=== PATIENT | male | born 1960 | race Two or more races ===

== ENCOUNTER → 2025-04-23 | Outpatient (CLI) | payer MEDICARE, SELFPAY | END | disposition home or self-care (01) | PROVIDERS: PCP Internal Medicine; Referring Provider Internal Medicine; Visit Provider Student in an Organized Health Care Education/Training Program | DX: E11.621 Type 2 diabetes mellitus with foot ulcer (principal); L97.525 Non-pressure chronic ulcer of other part of left foot with muscle involvement without evidence of necrosis; D64.9 Anemia, unspecified; E11.40 Type 2 diabetes mellitus with diabetic neuropathy, unspecified; I50.9 Heart failure, unspecified; M86.9 Osteomyelitis, unspecified; N18.6 End stage renal disease; E78.5 Hyperlipidemia, unspecified; E66.09 Other obesity due to excess calories; Z79.85 Long-term (current) use of injectable non-insulin antidiabetic drugs | CPT/HCPCS: 99214; A9270; G0463 ==

== ENCOUNTER → 2025-04-30 | Outpatient (CLI) | payer MEDICARE, SELFPAY | END | disposition home or self-care (01) | LOC: SWHD 10:13 | PROVIDERS: PCP Family Medicine; Referring Provider Family Medicine; Visit Provider Student in an Organized Health Care Education/Training Program | DX: E11.621 Type 2 diabetes mellitus with foot ulcer (principal); L97.522 Non-pressure chronic ulcer of other part of left foot with fat layer exposed; D64.9 Anemia, unspecified; E11.40 Type 2 diabetes mellitus with diabetic neuropathy, unspecified; M86.9 Osteomyelitis, unspecified; N18.6 End stage renal disease; E78.5 Hyperlipidemia, unspecified; E66.09 Other obesity due to excess calories; Z79.85 Long-term (current) use of injectable non-insulin antidiabetic drugs | CPT/HCPCS: 11042; A9270 ==

== ENCOUNTER → 2025-05-07 | Outpatient (CLI) | payer MEDICARE, SELFPAY | END | disposition home or self-care (01) | LOC: SWHD 10:21 | PROVIDERS: PCP Family Medicine; Referring Provider Family Medicine; Visit Provider Student in an Organized Health Care Education/Training Program | DX: E11.621 Type 2 diabetes mellitus with foot ulcer (principal); L97.525 Non-pressure chronic ulcer of other part of left foot with muscle involvement without evidence of necrosis; D64.9 Anemia, unspecified; E11.40 Type 2 diabetes mellitus with diabetic neuropathy, unspecified; M86.9 Osteomyelitis, unspecified; N18.6 End stage renal disease; E78.5 Hyperlipidemia, unspecified; E66.09 Other obesity due to excess calories; Z79.85 Long-term (current) use of injectable non-insulin antidiabetic drugs | CPT/HCPCS: 11043; A9270 ==

== ENCOUNTER → 2025-05-14 | Outpatient (CLI) | payer MEDICARE, SELFPAY | END | disposition home or self-care (01) | LOC: SWHD 10:09 | PROVIDERS: PCP Family Medicine; Referring Provider Family Medicine; Visit Provider Student in an Organized Health Care Education/Training Program | DX: E11.621 Type 2 diabetes mellitus with foot ulcer (principal); L97.526 Non-pressure chronic ulcer of other part of left foot with bone involvement without evidence of necrosis; D64.9 Anemia, unspecified; E11.40 Type 2 diabetes mellitus with diabetic neuropathy, unspecified; M86.9 Osteomyelitis, unspecified; N18.6 End stage renal disease; E78.5 Hyperlipidemia, unspecified; E66.09 Other obesity due to excess calories; Z79.85 Long-term (current) use of injectable non-insulin antidiabetic drugs | CPT/HCPCS: 11044; A9270 ==

== ENCOUNTER → 2025-05-14 | Outpatient (CLI) | payer MEDICARE, SELFPAY ==
--- NOTE | 2025-05-14 12:33 | XR_ITS ---
Examination: Toes, left foot 3 views Technique: Toes AP oblique lateral 3 views left foot 3 views Date and time of exam: May 14, 2025 1338 hours INDICATIONS: Nonhealing wounds involving the toes, this month FINDINGS: Severe osteopenia Periosteal new bone involving the proximal phalanx second digit with associated soft tissue swelling Soft tissue vascular calcification IMPRESSION: Osteomyelitis proximal phalanx second digit, consider repeat MRI foot without contrast follow-up
== END | disposition home or self-care (01) ==
LOC: CDIM 12:25
PROVIDERS: PCP Family Medicine; Referring Provider Student in an Organized Health Care Education/Training Program; Visit Provider Student in an Organized Health Care Education/Training Program
DX: M86.8X8 Other osteomyelitis, other site (principal)
CPT/HCPCS: 73660

== ENCOUNTER → 2025-05-21 | Outpatient (CLI) | payer MEDICARE, SELFPAY | END | disposition home or self-care (01) | PROVIDERS: PCP Family Medicine; Referring Provider Family Medicine; Visit Provider Student in an Organized Health Care Education/Training Program | DX: E11.621 Type 2 diabetes mellitus with foot ulcer (principal); L97.524 Non-pressure chronic ulcer of other part of left foot with necrosis of bone; D64.9 Anemia, unspecified; E11.40 Type 2 diabetes mellitus with diabetic neuropathy, unspecified; M86.9 Osteomyelitis, unspecified; N18.6 End stage renal disease; E78.5 Hyperlipidemia, unspecified; E66.09 Other obesity due to excess calories; Z79.85 Long-term (current) use of injectable non-insulin antidiabetic drugs | CPT/HCPCS: 11042; A9270 ==

== ENCOUNTER → 2025-05-28 | Outpatient (CLI) | payer MEDICARE, SELFPAY | END | disposition home or self-care (01) | LOC: SWHD 08:19 | PROVIDERS: PCP Family Medicine; Referring Provider Family Medicine; Visit Provider Student in an Organized Health Care Education/Training Program | DX: E11.621 Type 2 diabetes mellitus with foot ulcer (principal); L97.522 Non-pressure chronic ulcer of other part of left foot with fat layer exposed; D64.9 Anemia, unspecified; E11.40 Type 2 diabetes mellitus with diabetic neuropathy, unspecified; M86.9 Osteomyelitis, unspecified; N18.6 End stage renal disease; E78.5 Hyperlipidemia, unspecified; E66.09 Other obesity due to excess calories; Z79.85 Long-term (current) use of injectable non-insulin antidiabetic drugs | CPT/HCPCS: 97597; A9270 ==

== ENCOUNTER → 2025-06-04 | Outpatient (CLI) | payer MEDICARE, SELFPAY | END | disposition home or self-care (01) | LOC: SWHD 08:39 | PROVIDERS: PCP Family Medicine; Referring Provider Family Medicine; Visit Provider Student in an Organized Health Care Education/Training Program | DX: E11.621 Type 2 diabetes mellitus with foot ulcer (principal); L97.522 Non-pressure chronic ulcer of other part of left foot with fat layer exposed; D64.9 Anemia, unspecified; E11.40 Type 2 diabetes mellitus with diabetic neuropathy, unspecified; M86.9 Osteomyelitis, unspecified; N18.6 End stage renal disease; E78.5 Hyperlipidemia, unspecified; E66.09 Other obesity due to excess calories; Z79.85 Long-term (current) use of injectable non-insulin antidiabetic drugs | CPT/HCPCS: 97597; A9270 ==

== ENCOUNTER → 2025-06-11 | Outpatient (CLI) | payer MEDICARE, SELFPAY | END | disposition home or self-care (01) | LOC: SWHD 09:28 | PROVIDERS: PCP Family Medicine; Referring Provider Family Medicine; Visit Provider Student in an Organized Health Care Education/Training Program | DX: E11.621 Type 2 diabetes mellitus with foot ulcer (principal); L97.522 Non-pressure chronic ulcer of other part of left foot with fat layer exposed; D64.9 Anemia, unspecified; E11.40 Type 2 diabetes mellitus with diabetic neuropathy, unspecified; M86.9 Osteomyelitis, unspecified; N18.6 End stage renal disease; E78.5 Hyperlipidemia, unspecified; E66.09 Other obesity due to excess calories; Z79.85 Long-term (current) use of injectable non-insulin antidiabetic drugs | CPT/HCPCS: 97597; A9270 ==

== ENCOUNTER 2025-06-17 13:51 | Outpatient (AMB) | payer MEDICARE, SELFPAY ==
[2025-06-17 14:03] VITALS: BP 118/76; PULSE 114; RESP 18; TEMP 36.2; O2SAT 95; BMI 35.9
--- NOTE | 2025-06-17 14:03 | PD.ORTHCLVIS ---
Vital signs 06/17/25 14:03 Height 1.8 m Height Method Measured Weight 116.658 kg Weight Measurement Method Standing Scale BMI 35.9 BP 118/76 Blood Pressure Source Automatic Cuff Blood Pressure Location Right Upper Arm Position Sitting Respiration 18 Pulse 114 H Pulse Source Monitor Temp 97.1 F Temp Source Temporal Artery Scan Pulse Oximetry (%) 95 Oxygen Delivery Method Room Air Med/Allergies Allergies & Medications Allergies No Known Allergies Allergy (Verified 06/17/25 14:04) Medication Reconciliation gabapentin 300 mg capsule 300 mg PO TID #0 caps 07/21/17 [History Confirmed 06/17/25] labetalol 100 mg tablet 100 mg PO BID #0 tabs 07/25/17 [History Confirmed 06/17/25] pravastatin 40 mg tablet 40 mg PO QDAY 11/06/19 [History Confirmed 06/17/25] clopidogrel 75 mg tablet 75 mg PO QDAY 12/30/20 [History Confirmed 06/17/25] calcium acetate 667 mg tablet 667 mg PO TID 02/22/22 [History Confirmed 06/17/25] omega 0-bmz-nfe-fish oil 1,000 mg (120 mg-180 mg) capsule (Fish Oil) 1 cap PO QDAY 02/22/22 [History Confirmed 06/17/25] acetaminophen 500 mg tablet 500 mg PO Q6H PRN PAIN 04/13/22 [History Confirmed 06/17/25] insulin glargine 100 unit/mL (3 mL) subcutaneous pen 10 unit (0.1 mL) subcut QPM 30 days #3 mL 07/03/23 [Rx Confirmed 06/17/25] Exam Exam Patient is in no acute distress and is cooperative with the examination today. Breathing is nonlabored. Patient has a normal mood and affect. Bilateral extremities were evaluated and demonstrates sensation intact to light touch. Palpable pedal pulses are present. No significant edema is present. Bilateral hips were examined. The patient has no pain with log roll of the hips. Internal rotation to 30 degrees and external rotation to 30 degrees is painless. Negative FADIR. Right knee was examined today. The right knee is in reasonable alignment. Range of motion from 0-120 degrees. Knee is stable to varus and valgus as well as AP translation with <5mm. Patient has a negative McMurrays. There is no pain with patellofemoral compression and no crepitus noted. The knee is nontender to palpation. Left knee was examined today. The left knee is in varus alignment. Range of motion from 0-115 degrees. Knee is stable to varus and valgus as well as AP translation with <5mm. Patient has a negative McMurrays. There is no pain with patellofemoral compression and no crepitus noted. The knee is tender to palpation medially. Assessment and Plan Problem List (1) Arthritis of left knee: Status: Acute Plan: Patient is a pleasant 65-year-old male with left knee pain and left knee arthritis. We discussed different treatment options. We would like to get weightbearing x-rays as well as authorization for injections. We will see him back after his left knee x-rays are done. Office Procedures GNS Level of Care Nursing/Assessment Patient Status: Initial/New Patient Nursing Assessment/Reassesment: Medication Reconciliation, Orthostatic Vitals, Update PMH in EMR and Vital Signs Coordination of Care: Complex Care and Chronic Disease 1-5, Education Complex Pt/Fam, Consent,records obtained, informed consent, Lab and Imaging orders, Results/Orders obtained and Staff clarify orders New Patient Charge New Patient Point Assignment: 1119 New Patient Point Charge: BATHROOM TILING PROFESSIONAL Level 4 (7460-2093) MA Intake Visit Data Collection New Patient or Established: New Patient (never been to [facility]) Reason for Visit:: LEFT KNEE OSTEOARTHRITIS Seen by Clinical Staff ONLY (RN/MA): No Artificial Flowers Dyer Required: No PCP or OBGYN visit in last 3 months: Yes Hx Now: No Do You Feel Safe at Home: Yes Authorities Contacted: N/A Questionairres Past Medical History Past Medical History Have you ever been diagnosed with any of the following: Neurological Problems Cerebrovascular Accident (CVA): No Transient Ischemic Attacks (TIA): No Dementia: No Alzheimer's Disease: No Parkinson's Disease: No Brain Tumor: No Meningitis: No Seizures: No Epilepsy: No Multiple Sclerosis: No Cerebral Palsy: No Amyotrophic Lateral Sclerosis (ALS/Lizzette Gehrig's): No Guillain-[place] Syndrome: No Spina Bifida: No Paralysis: No Peripheral Neuropathy: No Ashraf's Palsy: No Subdural Hematoma: No Migraine: No Head Trauma: No Spinal Cord Injury: No Traumatic Brain Injury: No Cardiology Problems Myocardial Infarction: Yes (MILD [address] BRIGGS AND WAS RELEASED PER PT) Hypercholesterolemia: Yes Congestive Heart Failure: No Edema: No Cellulitis: No Hypertension: Yes (TAKES MED) Varicose Veins: No Respiratory Problems Chronic Obstructive Pulmonary Disease (COPD): No Asthma: No Bronchitis: No Emphysema: No Pneumonia: No Pulmonary Fibrosis: No Tuberculosis: No Pulmonary Embolism: No Pulmonary Edema: No Sleep Apnea: No Stomache/Intestinal Problems Hepatitis: No Cirrhosis: No Pancreatitis: No Celiac Disease: No Gall Bladder Disease: No Gastrointestinal Bleed: No Esophageal Varices: No Polk's Esophagus: No Colitis: No Ulcerative Colitis: No Diverticulitis: No Diverticulosis: No Ulcer: No Colorectal Cancer: No Irritable Bowel: No Crohn's Disease: No Obstructive Bowel: No Hiatal Hernia: No Hemorrhoids: No Gastroesophageal Reflux Disease: No Obesity: No Genital/Urinary Problems Renal Disease: Yes (ESRD DIALYSIS CATH RIGHT CHEST) Dialysis: Yes (TUES,TH,SAT) Prostate Cancer: No Reproductive Problems Breast Cancer: No Fibroids: No Genital Herpes: No Gonorrhea: No Syphilis: No Testicular Cancer: No Musculoskeletal Problems Muscular Dystrophy: No Myasthenia Gravis: No Marfan's Syndrome: No Bone Cancer: No Arthritis: Yes Rheumatoid Arthritis: No Osteoporosis: No Degenerative Disk Disease: No Gout: No Scoliosis: No Carpal Tunnel Syndrome: No Fibromyalgia: No Fractures: No Degenerative Joint Disease: No Osteomyelitis: No Poliovirus: No Head,Eye,Nose,Throat Problems Cataracts: No Glaucoma: No Blind: No Retinal Detachment: No Macular Degeneration: No Chronic Ear Infections: No Deafness: No Eye Prosthesis: No Endocrine Problems Diabetes Mellitus Type 1: No Diabetes Mellitus Type 2: Yes (TAKES PRN SUBQ) Blood Problems Anemia: No (STOP MED) Leukemia: No Hemophilia: No Thalassemia: No Sickle Cell Disease: No Clotting Problems: Yes (?) Psychologic Problems Schizophrenia: No Recreational Drug Use: No Bipolar Disorder: No Depression: No Anxiety: No Behavior Problems: No Self-Mutilation: No Attention Deficit Disorder: No Attention Deficit Hyperactivity Disorder: No Depression: No Post Traumatic Stress Disorder: No Eating Disorder: No Other Problems Hospitalization: Yes (HOSP FOR LEFT FOOT BIG TOE [facility] 01/28 [facility]) Down Syndrome: No Autism: No Developmental Delay: No Shingles: No Falls: No Blood Transfusions: Yes Blood Transfusion Reaction: No Anesthesia Reactions: No Organ Transplant: No Chemotherapy: No Radiation Therapy: No Hyperbaric Therapy: No MRSA: No VRSA: No Vancomycin-Resistant Enterococci: No Human Immunodeficiency Virus (HIV): No Chicken Pox: Yes Measles: Yes Mumps: Yes Rubella (Macedonian Measles): No Pertussis: No Clostridium Difficile: No Cancer: No Lung Cancer: No Surgical History Carotid Endarterectomy: No Coronary Artery Bypass Graft: No Valve Replacement: No Pacemaker: No Thyroidectomy: No Subjective Visit Visit for: new patient and knee Immunization / Flu Flu Vaccine in the Last 12 Months: Yes Flu Vaccine Exclusion Criteria: Already Received History of Present Illness Chief complaint: LEFT KNEE OSTEOARTHRITIS Date of injury / onset of symptoms: 14 YEARS AGO Keny is a pleasant 65-year-old male with left knee pain and left knee arthritis. The left side is worse than the right. He reports his hemoglobin A1c is 7. He is on dialysis and he had a prior heart attack. Great candidate for total knee replacement. The knee pains been ongoing for 3 years Personal History Red flag PMH: none BMI Counceling provided: Yes Pain Pain level (0-10): 7 Pain duration: ALL DAY Pain location: inside (medial) Pain quality: sharp Associated signs & symptoms: none Ambulatory data Ambulatory device: walker Walking distance (minutes): 5 Treatments Number of previous injections: 0 Number of Physical Therapy sessions: 0 Improvement with NSAIDS: no Review of Systems Review of Systems: All systems negative unless otherwise noted in HPI.
--- NOTE | 2025-06-17 14:21 | XR_ITS ---
Examination: Bilateral knees 2 views Right lateral knee left lateral knee 2 views Bilateral axial knees single view TECHNIQUE: Bilateral AP knees standing single view, bilateral PA knees standing single view flexion Standing right lateral knee left lateral knee 2 views Bilateral axial knees single view Date and time: June 17, 2025, 1430 hours INDICATIONS: Knee pain months FINDINGS: Moderate osteopenia. Mild narrowing medial joint space right knee No fracture Advanced narrowing ixkk-bl-ydct medial joint space left knee Moderate to advanced osteoarthritis lateral and patellofemoral joints left knee. Vascular calcification. IMPRESSION: Advanced left knee tricompartment osteoarthritis including severe narrowing mntt-hx-haty medial joint space left knee.
== END 2025-06-17 14:24 | disposition home or self-care (01) ==
LOC: HODSRG 13:51
PROVIDERS: PCP Family Medicine; Referring Provider Family Medicine; Supervising Provider Orthopaedic Surgery Adult Reconstructive Orthopaedic Surgery; Visit Provider Orthopaedic Surgery Adult Reconstructive Orthopaedic Surgery
DX: M17.12 Unilateral primary osteoarthritis, left knee (principal); M25.562 Pain in left knee; E78.00 Pure hypercholesterolemia, unspecified; I25.2 Old myocardial infarction; I12.0 Hypertensive chronic kidney disease with stage 5 chronic kidney disease or end stage renal disease; E11.9 Type 2 diabetes mellitus without complications; N18.6 End stage renal disease; Z99.2 Dependence on renal dialysis
CPT/HCPCS: 73564; 99204; G0463

== ENCOUNTER → 2025-06-18 | Outpatient (CLI) | payer MEDICARE, SELFPAY | END | disposition home or self-care (01) | LOC: SWHD 08:26 | PROVIDERS: PCP Family Medicine; Referring Provider Family Medicine; Visit Provider Student in an Organized Health Care Education/Training Program | DX: E11.621 Type 2 diabetes mellitus with foot ulcer (principal); L97.522 Non-pressure chronic ulcer of other part of left foot with fat layer exposed; D64.9 Anemia, unspecified; E11.40 Type 2 diabetes mellitus with diabetic neuropathy, unspecified; M86.9 Osteomyelitis, unspecified; N18.6 End stage renal disease; E78.5 Hyperlipidemia, unspecified; E66.09 Other obesity due to excess calories; Z79.85 Long-term (current) use of injectable non-insulin antidiabetic drugs | CPT/HCPCS: 11042; A9270 ==

== ENCOUNTER → 2025-06-25 | Outpatient (CLI) | payer MEDICARE, SELFPAY | END | disposition home or self-care (01) | LOC: SWHD 08:32 | PROVIDERS: PCP Family Medicine; Referring Provider Family Medicine; Visit Provider Student in an Organized Health Care Education/Training Program | DX: E11.621 Type 2 diabetes mellitus with foot ulcer (principal); L97.522 Non-pressure chronic ulcer of other part of left foot with fat layer exposed; D64.9 Anemia, unspecified; E11.40 Type 2 diabetes mellitus with diabetic neuropathy, unspecified; M86.9 Osteomyelitis, unspecified; N18.6 End stage renal disease; E66.09 Other obesity due to excess calories; Z79.85 Long-term (current) use of injectable non-insulin antidiabetic drugs | CPT/HCPCS: 11042; A9270 ==

== ENCOUNTER 2025-07-01 13:32 | Outpatient (AMB) | payer MEDICARE, SELFPAY ==
[2025-07-01 13:48] VITALS: BP 120/75; PULSE 89; RESP 18; TEMP 36.3; O2SAT 93; BMI 35.9
--- NOTE | 2025-07-01 13:48 | ORTHONT_ITS ---
Vital signs 07/01/25 13:48 Height 1.8 m Height Method Measured Weight 116.375 kg Weight Measurement Method Standing Scale BMI 35.9 BP 120/75 Blood Pressure Source Automatic Cuff Blood Pressure Location Left Upper Arm Position Sitting Respiration 18 Pulse 89 Pulse Source Monitor Temp 97.3 F Temp Source Temporal Artery Scan Pulse Oximetry (%) 93 L Oxygen Delivery Method Room Air Med/Allergies Allergies & Medications Allergies No Known Allergies Allergy (Verified 07/01/25 13:49) Medication Reconciliation gabapentin 300 mg capsule 300 mg PO TID #0 caps 07/21/17 [History Confirmed 06/10 12/31] labetalol 100 mg tablet 100 mg PO BID #0 tabs 07/25/17 [History Confirmed 07/01/25] pravastatin 40 mg tablet 40 mg PO QDAY 11/06/19 [History Confirmed 07/01/25] clopidogrel 75 mg tablet 75 mg PO QDAY 12/30/20 [History Confirmed 07/01/25] calcium acetate 667 mg tablet 667 mg PO TID 02/22/22 [History Confirmed 07/01/25] omega 0-ndw-lrg-fish oil 1,000 mg (120 mg-180 mg) capsule (Fish Oil) 1 cap PO QDAY 02/22/22 [History Confirmed 07/01/25] acetaminophen 500 mg tablet 500 mg PO Q6H PRN PAIN 04/13/22 [History Confirmed 07/01/25] insulin glargine 100 unit/mL (3 mL) subcutaneous pen 10 unit (0.1 mL) subcut QPM 30 days #3 mL 07/03/23 [Rx Confirmed 07/01/25] Exam Exam Patient is in no acute distress and is cooperative with the examination today. Breathing is nonlabored. Patient has a normal mood and affect. Bilateral extremities were evaluated and demonstrates sensation intact to light touch. Palpable pedal pulses are present. No significant edema is present. Bilateral hips were examined. The patient has no pain with log roll of the hips. Internal rotation to 30 degrees and external rotation to 30 degrees is painless. Negative FADIR. Right knee was examined today. The right knee is in reasonable alignment. Range of motion from 0-120 degrees. Knee is stable to varus and valgus as well as AP translation with <5mm. Patient has a negative McMurrays. There is no pain with patellofemoral compression and no crepitus noted. The knee is nontender to palpation. Left knee was examined today. The left knee is in varus alignment. Range of motion from 0-115 degrees. Knee is stable to varus and valgus as well as AP translation with <5mm. Patient has a negative McMurrays. There is no pain with patellofemoral compression and no crepitus noted. The knee is tender to palpation medially. Patient has severe arthritis of his left knee with complete joint space obliteration medially Assessment and Plan Problem List (1) Arthritis of left knee: Status: Acute Plan ASSESSMENT AND PLAN 1. Severe bbea-pl-bowd arthritis, left knee: X-ray results indicate severe pkdk-bl-flei arthritis in the left knee. Given the high-risk status for surgery due to dialysis and a previous heart attack, a cortisone injection is recommended as an alternative to total knee replacement. The knee replacement would involve replacing the surface with metal and plastic, but there is a high risk of infection due to dialysis. The cortisone injection will be administered today. For pain management, Tylenol is recommended as he cannot take other medications due to kidney issues. 2. Neuropathy: He reported developing blisters on top of his toes due to neuropathy, which prevented him from feeling a paper in his new shoes. He is currently wearing a boot to manage the ulcers. The blisters are expected to heal by tomorrow. 3. Diabetes Mellitus: His hemoglobin A1c is about 7, indicating controlled blood sugar levels. Continued monitoring and management of blood sugar levels are recommended to maintain control. 4. Dialysis: He is currently on dialysis, which increases his risk for infections and complicates surgical options. Regular follow-ups with the documentation billing clerk are necessary to manage dialysis effectively. Recommend knee cortisone injection as patient would like to proceed with conservative treatment at this time. The risks and benefits of the procedure were reviewed with the patient and patient gave verbal consent to continue with the procedure. Procedure: performed by Dr. Blank Using sterile technique the left knee was thoroughly prepped with alcohol, and approximately 1 cc of Depo-Medrol 80mg/mL and 4 cc of 0.2% ropivacaine was injected without resistance into the medial tibial femoral joint space. The patient tolerated the procedure. Office Procedures GNS Level of Care Nursing/Assessment Patient Status: Established Patient Nursing Assessment/Reassesment: Medication Reconciliation, Update PMH in EMR and Vital Signs Coordination of Care: Complex Care and Chronic Disease 1-5, Education Complex Pt/Fam, Consent,records obtained, informed consent, Results/Orders obtained and Staff clarify orders Established Patient Charge Established Patient Point Assignment: 95 Established Patient Point Charge: EP Level 3 (80-115) Surgical Proc/IM SQ injection Minor Surgical Procedure: Yes (KNEE INJECTION) Medication Given Medication Given Medication Given: Yes Documented Dose Given: 1 Route: Infiitration Medication Given Medication Given Medication Given: Yes Documented Dose Given: 4 Route: Infiitration Office Meds methylprednisolone acetate 80 mg/mL suspension for injection Performing Provider: Micha Blank MD Performing Location: [facility] Administered by: Micha Blank MD on 07/01/25 14:31 Dose Route Admin Location Dispensed Lot Number Expiration Date Pack age [facility] [employer] 80 mg intra-articular KNEE 1 mL [id number] 09/07/26 [address]-8 [id number] [employer] ropivacaine (PF) 2 mg/mL (0.2 %) injection solution Performing Provider: Micha Blank MD Performing Location: [facility] Administered by: Micha Blank MD on 07/01/25 14:31 Dose Route Admin Location Dispensed Lot Number Expiration Date Pack age [facility] [employer] 20 mL Infiltration KNEE 20 mL [id number] 11/08/27 40946-439-66 [id number] [facility] Intake Visit Data Collection New Patient or Established: Established Patient (seen at [facility] within 3 years) Reason for Visit:: XRAY RESULTS/BILATERAL KNEE INJECTIONS Seen by Clinical Staff ONLY (RN/MA): No Yarn Comber Required: No PCP or OBGYN visit in last 3 months: Yes Hx Now: No Do You Feel Safe at Home: Yes Authorities Contacted: N/A Questionairres Past Medical History Past Medical History Have you ever been diagnosed with any of the following: Neurological Problems Cerebrovascular Accident (CVA): No Transient Ischemic Attacks (TIA): No Dementia: No Alzheimer's Disease: No Parkinson's Disease: No Brain Tumor: No Meningitis: No Seizures: No Epilepsy: No Multiple Sclerosis: No Cerebral Palsy: No Amyotrophic Lateral Sclerosis (ALS/Lizzette Gehrig's): No Guillain-[place] Syndrome: No Spina Bifida: No Paralysis: No Peripheral Neuropathy: No Ashraf's Palsy: No Subdural Hematoma: No Migraine: No Head Trauma: No Spinal Cord Injury: No Traumatic Brain Injury: No Cardiology Problems Myocardial Infarction: Yes ([address] BRIGGS AND WAS RELEASED PER PT) Hypercholesterolemia: Yes Congestive Heart Failure: No Edema: No Cellulitis: No Hypertension: Yes (TAKES MED) Varicose Veins: No Respiratory Problems Chronic Obstructive Pulmonary Disease (COPD): No Asthma: No Bronchitis: No Emphysema: No Pneumonia: No Pulmonary Fibrosis: No Tuberculosis: No Pulmonary Embolism: No Pulmonary Edema: No Sleep Apnea: No Stomache/Intestinal Problems Hepatitis: No Cirrhosis: No Pancreatitis: No Celiac Disease: No Gall Bladder Disease: No Gastrointestinal Bleed: No Esophageal Varices: No Polk's Esophagus: No Colitis: No Ulcerative Colitis: No Diverticulitis: No Diverticulosis: No Ulcer: No Colorectal Cancer: No Irritable Bowel: No Crohn's Disease: No Obstructive Bowel: No Hiatal Hernia: No Hemorrhoids: No Gastroesophageal Reflux Disease: No Obesity: No Genital/Urinary Problems Renal Disease: Yes (ESRD DIALYSIS CATH RIGHT CHEST) Dialysis: Yes (TUES,TH,SAT) Prostate Cancer: No Reproductive Problems Breast Cancer: No Fibroids: No Genital Herpes: No Gonorrhea: No Syphilis: No Testicular Cancer: No Musculoskeletal Problems Muscular Dystrophy: No Myasthenia Gravis: No Marfan's Syndrome: No Bone Cancer: No Arthritis: Yes Rheumatoid Arthritis: No Osteoporosis: No Degenerative Disk Disease: No Gout: No Scoliosis: No Carpal Tunnel Syndrome: No Fibromyalgia: No Fractures: No Degenerative Joint Disease: No Osteomyelitis: No Poliovirus: No Head,Eye,Nose,Throat Problems Cataracts: No Glaucoma: No Blind: No Retinal Detachment: No Macular Degeneration: No Chronic Ear Infections: No Deafness: No Eye Prosthesis: No Endocrine Problems Diabetes Mellitus Type 1: No Diabetes Mellitus Type 2: Yes (TAKES PRN SUBQ) Blood Problems Anemia: No (STOP MED) Leukemia: No Hemophilia: No Thalassemia: No Sickle Cell Disease: No Clotting Problems: Yes (?) Psychologic Problems Schizophrenia: No Recreational Drug Use: No Bipolar Disorder: No Depression: No Anxiety: No Behavior Problems: No Self-Mutilation: No Attention Deficit Disorder: No Attention Deficit Hyperactivity Disorder: No Depression: No Post Traumatic Stress Disorder: No Eating Disorder: No Other Problems Hospitalization: Yes (HOSP FOR LEFT FOOT BIG TOE [facility]GR[facility] 01/28 [facility]) Down Syndrome: No Autism: No Developmental Delay: No Shingles: No Falls: No Blood Transfusions: Yes Blood Transfusion Reaction: No Anesthesia Reactions: No Organ Transplant: No Chemotherapy: No Radiation Therapy: No Hyperbaric Therapy: No MRSA: No VRSA: No Vancomycin-Resistant Enterococci: No Human Immunodeficiency Virus (HIV): No Chicken Pox: Yes Measles: Yes Mumps: Yes Rubella (Nepali Measles): No Pertussis: No Clostridium Difficile: No Cancer: No Lung Cancer: No Surgical History Carotid Endarterectomy: No Coronary Artery Bypass Graft: No Valve Replacement: No Pacemaker: No Thyroidectomy: No Subjective Visit Visit for: follow up visit and knee Immunization / Flu Flu Vaccine in the Last 12 Months: Yes Flu Vaccine Exclusion Criteria: Already Received History of Present Illness Chief complaint: LEFT KNEE OSTEOARTHRITIS Date of injury / onset of symptoms: 14 YEARS AGO HISTORY OF PRESENT ILLNESS I, Micha Blank, have obtained verbal consent from the patient, to be recorded during this encounter which may include, but not limited to, medical history, examination, treatment plans, and relevant health information.? Patient was inf ormed that recording will be read and reviewed by myself before inclusion in the medical chart. The patient is here for an x-ray follow-up of his left knee. He reports that his right knee is in good condition. He has not received any injections in his left knee previously. He is currently on dialysis and has a history of heart attack. He has neuropathy and developed blisters on his toes after wearing new shoes 3 to 4 weeks ago. He attributes this to his neuropathy, which prevented him from feeling the paper at the tip of the shoes. He expects these blisters to heal by tomorrow and is under the care of a cake decorator. His hemoglobin A1c level is approximately 7, indicating controlled blood sugar levels. Personal History Red flag PMH: none BMI Counceling provided: Yes Pain Pain level (0-10): 7 Pain duration: ALL DAY Pain location: inside (medial) Pain quality: sharp Associated signs & symptoms: none Ambulatory data Ambulatory device: walker Walking distance (minutes): 5 Treatments Number of previous injections: 0 Number of Physical Therapy sessions: 0 Improvement with NSAIDS: no Review of Systems Review of Systems: All systems negative unless otherwise noted in HPI.
== END 2025-07-01 13:59 | disposition home or self-care (01) ==
LOC: HODSRG 13:32
PROVIDERS: PCP Family Medicine; Referring Provider Family Medicine; Supervising Provider Orthopaedic Surgery Adult Reconstructive Orthopaedic Surgery; Visit Provider Orthopaedic Surgery Adult Reconstructive Orthopaedic Surgery
DX: M17.12 Unilateral primary osteoarthritis, left knee (principal); E11.40 Type 2 diabetes mellitus with diabetic neuropathy, unspecified; I12.0 Hypertensive chronic kidney disease with stage 5 chronic kidney disease or end stage renal disease; E11.22 Type 2 diabetes mellitus with diabetic chronic kidney disease; N18.6 End stage renal disease; Z99.2 Dependence on renal dialysis; I25.2 Old myocardial infarction
CPT/HCPCS: 20610; 99213; J1010; J2795; G0463

== ENCOUNTER → 2025-07-02 | Outpatient (CLI) | payer MEDICARE, SELFPAY | END | disposition home or self-care (01) | LOC: SWHD 08:36 | PROVIDERS: PCP Family Medicine; Referring Provider Family Medicine; Visit Provider Student in an Organized Health Care Education/Training Program | DX: E11.621 Type 2 diabetes mellitus with foot ulcer (principal); L97.522 Non-pressure chronic ulcer of other part of left foot with fat layer exposed; D64.9 Anemia, unspecified; N18.6 End stage renal disease; E66.09 Other obesity due to excess calories; Z79.85 Long-term (current) use of injectable non-insulin antidiabetic drugs | CPT/HCPCS: 97597; A9270 ==

== ENCOUNTER → 2025-07-09 | Outpatient (CLI) | payer MEDICARE, SELFPAY | END | disposition home or self-care (01) | LOC: SWHD 10:13 | PROVIDERS: PCP Family Medicine; Referring Provider Family Medicine; Visit Provider Student in an Organized Health Care Education/Training Program | DX: E11.621 Type 2 diabetes mellitus with foot ulcer (principal); L97.522 Non-pressure chronic ulcer of other part of left foot with fat layer exposed; D64.9 Anemia, unspecified; N18.6 End stage renal disease; E66.09 Other obesity due to excess calories; Z79.85 Long-term (current) use of injectable non-insulin antidiabetic drugs | CPT/HCPCS: 97597; A9270 ==

== ENCOUNTER → 2025-07-16 | Outpatient (CLI) | payer MEDICARE, SELFPAY | END | disposition home or self-care (01) | LOC: SWHD 08:35 | PROVIDERS: PCP Family Medicine; Referring Provider Family Medicine; Visit Provider Student in an Organized Health Care Education/Training Program | DX: E11.621 Type 2 diabetes mellitus with foot ulcer (principal); L97.522 Non-pressure chronic ulcer of other part of left foot with fat layer exposed; D64.9 Anemia, unspecified; N18.6 End stage renal disease; E66.09 Other obesity due to excess calories; Z79.85 Long-term (current) use of injectable non-insulin antidiabetic drugs; I11.0 Hypertensive heart disease with heart failure; E11.40 Type 2 diabetes mellitus with diabetic neuropathy, unspecified | CPT/HCPCS: 99213; A9270; G0463 ==

== ENCOUNTER 2025-07-20 20:53 | Emergency (ER) | payer MEDICAID, SELFPAY ==
[2025-07-20 20:54] VITALS: BMI 29.4
[2025-07-20 21:43] VITALS: BP 131/82; PULSE 97; RESP 20; TEMP 37.1; O2SAT 95
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
== END 2025-07-20 23:12 | disposition home or self-care (01) ==
PROVIDERS: Emergency Provider Emergency Medicine; PCP Family Medicine
DX: S43.402A Unspecified sprain of left shoulder joint, initial encounter (principal); S40.022A Contusion of left upper arm, initial encounter; V89.2XXA Person injured in unspecified motor-vehicle accident, traffic, initial encounter
CPT/HCPCS: 72040; 73030; 73060; 99284

== ENCOUNTER → 2025-07-23 | Outpatient (CLI) | payer MEDICARE, SELFPAY | END | disposition home or self-care (01) | LOC: SWHD 08:38 | PROVIDERS: PCP Family Medicine; Referring Provider Family Medicine; Visit Provider Student in an Organized Health Care Education/Training Program | DX: E11.621 Type 2 diabetes mellitus with foot ulcer (principal); L97.522 Non-pressure chronic ulcer of other part of left foot with fat layer exposed; D64.9 Anemia, unspecified; N18.6 End stage renal disease; E66.09 Other obesity due to excess calories; Z79.85 Long-term (current) use of injectable non-insulin antidiabetic drugs; I11.0 Hypertensive heart disease with heart failure; E11.40 Type 2 diabetes mellitus with diabetic neuropathy, unspecified | CPT/HCPCS: 99213; G0463 ==

== ENCOUNTER → 2025-07-30 | Outpatient (CLI) | payer MEDICARE, SELFPAY | END | disposition home or self-care (01) | LOC: SWHD 08:33 | PROVIDERS: PCP Family Medicine; Referring Provider Family Medicine; Visit Provider Student in an Organized Health Care Education/Training Program | DX: E11.621 Type 2 diabetes mellitus with foot ulcer (principal); L97.522 Non-pressure chronic ulcer of other part of left foot with fat layer exposed; D64.9 Anemia, unspecified; N18.6 End stage renal disease; E66.09 Other obesity due to excess calories; I11.0 Hypertensive heart disease with heart failure; E11.40 Type 2 diabetes mellitus with diabetic neuropathy, unspecified; Z79.85 Long-term (current) use of injectable non-insulin antidiabetic drugs | CPT/HCPCS: 99213; A9270; G0463 ==

== ENCOUNTER → 2025-08-06 | Outpatient (CLI) | payer MEDICARE, SELFPAY | END | disposition home or self-care (01) | LOC: SWHD 10:00 | PROVIDERS: PCP Family Medicine; Referring Provider Family Medicine; Visit Provider Student in an Organized Health Care Education/Training Program | DX: E11.621 Type 2 diabetes mellitus with foot ulcer (principal); L97.522 Non-pressure chronic ulcer of other part of left foot with fat layer exposed; D64.9 Anemia, unspecified; N18.6 End stage renal disease; E66.09 Other obesity due to excess calories; I11.0 Hypertensive heart disease with heart failure; E11.40 Type 2 diabetes mellitus with diabetic neuropathy, unspecified; Z79.85 Long-term (current) use of injectable non-insulin antidiabetic drugs | CPT/HCPCS: 99213; G0463 ==

== ENCOUNTER → 2025-08-13 | Outpatient (CLI) | payer MEDICARE, SELFPAY | END | disposition home or self-care (01) | LOC: SWHD 09:27 | PROVIDERS: PCP Family Medicine; Referring Provider Family Medicine; Visit Provider Student in an Organized Health Care Education/Training Program | DX: E11.621 Type 2 diabetes mellitus with foot ulcer (principal); L97.522 Non-pressure chronic ulcer of other part of left foot with fat layer exposed; N18.6 End stage renal disease; D64.9 Anemia, unspecified; I11.0 Hypertensive heart disease with heart failure; E11.40 Type 2 diabetes mellitus with diabetic neuropathy, unspecified; Z79.85 Long-term (current) use of injectable non-insulin antidiabetic drugs; E66.09 Other obesity due to excess calories | CPT/HCPCS: 99212; G0463 ==

== ENCOUNTER → 2025-09-10 | Outpatient (CLI) | payer MEDICARE, SELFPAY | END | disposition home or self-care (01) | LOC: SWHD 11:20 | PROVIDERS: PCP Family Medicine; Referring Provider Family Medicine; Visit Provider Student in an Organized Health Care Education/Training Program | DX: E11.621 Type 2 diabetes mellitus with foot ulcer (principal); L97.522 Non-pressure chronic ulcer of other part of left foot with fat layer exposed; N18.6 End stage renal disease; D64.9 Anemia, unspecified; I11.0 Hypertensive heart disease with heart failure; E11.40 Type 2 diabetes mellitus with diabetic neuropathy, unspecified; Z79.85 Long-term (current) use of injectable non-insulin antidiabetic drugs; E66.09 Other obesity due to excess calories | CPT/HCPCS: 99212; G0463 ==

== ENCOUNTER → 2025-09-24 | Outpatient (CLI) | payer MEDICARE, SELFPAY | END | disposition home or self-care (01) | LOC: SWHD 11:22 | PROVIDERS: PCP Family Medicine; Referring Provider Family Medicine; Visit Provider Student in an Organized Health Care Education/Training Program | DX: E11.621 Type 2 diabetes mellitus with foot ulcer (principal); L97.522 Non-pressure chronic ulcer of other part of left foot with fat layer exposed; N18.6 End stage renal disease; I11.0 Hypertensive heart disease with heart failure; E11.40 Type 2 diabetes mellitus with diabetic neuropathy, unspecified; Z79.85 Long-term (current) use of injectable non-insulin antidiabetic drugs; E66.09 Other obesity due to excess calories; D64.9 Anemia, unspecified; Z79.4 Long term (current) use of insulin | CPT/HCPCS: 99212; G0463 ==

== ENCOUNTER 2025-09-30 13:42 | Outpatient (AMB) | payer MEDICARE, SELFPAY ==
--- NOTE | 2025-09-30 13:54 | ORTHONT_ITS ---
Vital signs 09/30/25 13:57 Height 1.8 m Height Method Stated Weight 120.372 kg Weight Measurement Method Standing Scale BMI 37.1 BP 180/85 H Blood Pressure Source Automatic Cuff Blood Pressure Location Left Upper Arm Position Sitting Respiration 19 Pulse 92 Pulse Source Monitor Temp 97.2 F Temp Source Temporal Artery Scan Pulse Oximetry (%) 95 Oxygen Delivery Method Room Air Med/Allergies Allergies & Medications Allergies No Known Allergies Allergy (Verified 09/30/25 13:58) Medication Reconciliation gabapentin 300 mg capsule 300 mg PO TID #0 caps 07/21/17 [History Confirmed 09/30/25] labetalol 100 mg tablet 100 mg PO BID #0 tabs 07/25/17 [History Confirmed 09/30/25] pravastatin 40 mg tablet 40 mg PO QDAY 11/06/19 [History Confirmed 09/30/25] clopidogrel 75 mg tablet 75 mg PO QDAY 12/30/20 [History Confirmed 09/30/25] calcium acetate 667 mg tablet 667 mg PO TID 02/22/22 [History Confirmed 09/30/25] omega 2-nlu-unk-fish oil 1,000 mg (120 mg-180 mg) capsule (Fish Oil) 1 cap PO QDAY 02/22/22 [History Confirmed 09/30/25] acetaminophen 500 mg tablet 500 mg PO Q6H PRN PAIN 04/13/22 [History Confirmed 09/30/25] insulin glargine 100 unit/mL (3 mL) subcutaneous pen 10 unit (0.1 mL) subcut QPM 30 days #3 mL 07/03/23 [Rx Confirmed 09/30/25] tramadol 50 mg tablet 50 mg PO Q8H PRN pain #10 tabs 07/20/25 [Rx Confirmed 09/30/25] diclofenac sodium 3 % topical gel (Solaraze) 1 applic topical BID #100 grams 09/30/25 [Rx] Exam Exam Patient is in no acute distress and is cooperative with the examination today. Breathing is nonlabored. Patient has a normal mood and affect. Bilateral extremities were evaluated and demonstrates sensation intact to light touch. Palpable pedal pulses are present. No significant edema is present. Bilateral hips were examined. The patient has no pain with log roll of the hips. Internal rotation to 30 degrees and external rotation to 30 degrees is painless. Negative FADIR. Right knee was examined today. The right knee is in reasonable alignment. Range of motion from 0-120 degrees. Knee is stable to varus and valgus as well as AP translation with <5mm. Patient has a negative McMurrays. There is no pain with patellofemoral compression and no crepitus noted. The knee is nontender to palpation. Left knee was examined today. The left knee is in varus alignment. Range of motion from 0-115 degrees. Knee is stable to varus and valgus as well as AP translation with <5mm. Patient has a negative McMurrays. There is no pain with patellofemoral compression and no crepitus noted. The knee is tender to palpation medially. Patient has severe arthritis of his left knee with complete joint space obliteration medially Assessment and Plan Problem List (1) Arthritis of left knee: Status: Acute Plan ASSESSMENT AND PLAN 1. Severe xvwu-ry-olyv arthritis, left knee: X-ray results indicate severe kwxf-ih-ybsn arthritis in the left knee. Given the high-risk status for surgery due to dialysis and a previous heart attack, a cortisone injection is recommended as an alternative to total knee replacement. The knee replacement would involve replacing the surface with metal and plastic, but there is a high risk of infection due to dialysis. The cortisone injection will be administered today. For pain management, Tylenol is recommended as he cannot take other medications due to kidney issues. 2. Neuropathy: He reported developing blisters on top of his toes due to neuropathy, which prevented him from feeling a paper in his new shoes. He is currently wearing a boot to manage the ulcers. The blisters are expected to heal by tomorrow. 3. Diabetes Mellitus: His hemoglobin A1c is about 7, indicating controlled blood sugar levels. Continued monitoring and management of blood sugar levels are recommended to maintain control. 4. Dialysis: He is currently on dialysis, which increases his risk for infections and complicates surgical options. Regular follow-ups with the hospice clinical manager are necessary to manage dialysis effectively. Recommend knee cortisone injection as patient would like to proceed with conservative treatment at this time. The risks and benefits of the procedure were reviewed with the patient and patient gave verbal consent to continue with the procedure. Procedure: performed by Dr. Blank Using sterile technique the left knee was thoroughly prepped with alcohol, and approximately 1 cc of Depo-Medrol 80mg/mL and 4 cc of 0.2% ropivacaine was injected without resistance into the medial tibial femoral joint space. The patient tolerated the procedure. Office Procedures GNS Level of Care Nursing/Assessment Patient Status: Established Patient Nursing Assessment/Reassesment: Medication Reconciliation, Update PMH in EMR and Vital Signs Coordination of Care: Complex Care and Chronic Disease 1-5, Education Complex Pt/Fam, Consent,records obtained, informed consent, Results/Orders obtained and Staff clarify orders Established Patient Charge Established Patient Point Assignment: 95 Established Patient Point Charge: EP Level 3 (80-115) Surgical Proc/IM SQ injection Minor Surgical Procedure: Yes (KNEE INJECTION) Medication Given Medication Given Medication Given: Yes Documented Dose Given: 1 Route: Infiitration Medication Given Medication Given Medication Given: Yes Documented Dose Given: 4 Route: Infiitration Office Meds methylprednisolone acetate 80 mg/mL suspension for injection Performing Provider: Micha Blank MD Performing Location: [facility] Administered by: Micha Blank MD on 09/30/25 15:09 Dose Route Admin Location Dispensed Lot Number Expiration Date Pack age [facility] Supervisor Prep 80 mg intra-articular 1 mL [id number] 06/07/27 [address]-2 [id number] [employer] ropivacaine (PF) 2 mg/mL (0.2 %) injection solution Performing Provider: Micha Blank MD Performing Location: [facility] Administered by: Micha Blank MD on 09/30/25 15:09 Dose Route Admin Location Dispensed Lot Number Expiration Date Pack age [facility] Supervisor Prep 20 mL Infiltration 20 mL [id number] 11/07/27 82413-237-24 [id number] [facility] Intake Visit Data Collection New Patient or Established: Established Patient (seen at [facility] within 3 years) Reason for Visit:: 3MTH L KNEE INJUECTION Seen by Clinical Staff ONLY (RN/MA): No Door To Door Sales Representative Required: No PCP or OBGYN visit in last 3 months: Yes Hx Now: No Do You Feel Safe at Home: Yes Authorities Contacted: N/A Questionairres Past Medical History Past Medical History Have you ever been diagnosed with any of the following: Neurological Problems Cerebrovascular Accident (CVA): No Transient Ischemic Attacks (TIA): No Dementia: No Alzheimer's Disease: No Parkinson's Disease: No Brain Tumor: No Meningitis: No Seizures: No Epilepsy: No Multiple Sclerosis: No Cerebral Palsy: No Amyotrophic Lateral Sclerosis (ALS/Lizzette Gehrig's): No Guillain-Hermleigh Syndrome: No Spina Bifida: No Paralysis: No Peripheral Neuropathy: No Ashraf's Palsy: No Subdural Hematoma: No Migraine: No Head Trauma: No Spinal Cord Injury: No Traumatic Brain Injury: No Cardiology Problems Myocardial Infarction: Yes (MILD [address] BRIGGS AND WAS RELEASED PER PT) Hypercholesterolemia: Yes Congestive Heart Failure: No Edema: No Cellulitis: No Hypertension: Yes (TAKES MED) Varicose Veins: No Respiratory Problems Chronic Obstructive Pulmonary Disease (COPD): No Asthma: No Bronchitis: No Emphysema: No Pneumonia: No Pulmonary Fibrosis: No Tuberculosis: No Pulmonary Embolism: No Pulmonary Edema: No Sleep Apnea: No Stomache/Intestinal Problems Hepatitis: No Cirrhosis: No Pancreatitis: No Celiac Disease: No Gall Bladder Disease: No Gastrointestinal Bleed: No Esophageal Varices: No Polk's Esophagus: No Colitis: No Ulcerative Colitis: No Diverticulitis: No Diverticulosis: No Ulcer: No Colorectal Cancer: No Irritable Bowel: No Crohn's Disease: No Obstructive Bowel: No Hiatal Hernia: No Hemorrhoids: No Gastroesophageal Reflux Disease: No Obesity: No Genital/Urinary Problems Renal Disease: Yes (ESRD DIALYSIS CATH RIGHT CHEST) Dialysis: Yes (,,MON) Prostate Cancer: No Reproductive Problems Breast Cancer: No Fibroids: No Genital Herpes: No Gonorrhea: No Syphilis: No Testicular Cancer: No Musculoskeletal Problems Muscular Dystrophy: No Myasthenia Gravis: No Marfan's Syndrome: No Bone Cancer: No Arthritis: Yes Rheumatoid Arthritis: No Osteoporosis: No Degenerative Disk Disease: No Gout: No Scoliosis: No Carpal Tunnel Syndrome: No Fibromyalgia: No Fractures: No Degenerative Joint Disease: No Osteomyelitis: No Poliovirus: No Head,Eye,Nose,Throat Problems Cataracts: No Glaucoma: No Blind: No Retinal Detachment: No Macular Degeneration: No Chronic Ear Infections: No Deafness: No Eye Prosthesis: No Endocrine Problems Diabetes Mellitus Type 1: No Diabetes Mellitus Type 2: Yes (TAKES PRN SUBQ) Blood Problems Anemia: No (STOP MED) Leukemia: No Hemophilia: No Thalassemia: No Sickle Cell Disease: No Clotting Problems: Yes (?) Psychologic Problems Schizophrenia: No Recreational Drug Use: No Bipolar Disorder: No Depression: No Anxiety: No Behavior Problems: No Self-Mutilation: No Attention Deficit Disorder: No Attention Deficit Hyperactivity Disorder: No Depression: No Post Traumatic Stress Disorder: No Eating Disorder: No Other Problems Hospitalization: Yes (HOSP FOR LEFT FOOT BIG TOE [facility] 01/28 [facility]) Down Syndrome: No Autism: No Developmental Delay: No Shingles: No Falls: No Blood Transfusions: Yes Blood Transfusion Reaction: No Anesthesia Reactions: No Organ Transplant: No Chemotherapy: No Radiation Therapy: No Hyperbaric Therapy: No MRSA: No VRSA: No Vancomycin-Resistant Enterococci: No Human Immunodeficiency Virus (HIV): No Chicken Pox: Yes Measles: Yes Mumps: Yes Rubella ([place]oven[place] Measles): No Pertussis: No Clostridium Difficile: No Cancer: No Lung Cancer: No Surgical History Carotid Endarterectomy: No Coronary Artery Bypass Graft: No Valve Replacement: No Pacemaker: No Thyroidectomy: No Subjective Visit Visit for: follow up visit and knee Immunization / Flu Flu Vaccine in the Last 12 Months: Yes Flu Vaccine Exclusion Criteria: Already Received History of Present Illness Chief complaint: LEFT KNEE OSTEOARTHRITIS Date of injury / onset of symptoms: 14 YEARS AGO HISTORY OF PRESENT ILLNESS I, Micha Blank, have obtained verbal consent from the patient, to be recorded during this encounter which may include, but not limited to, medical history, examination, treatment plans, and relevant health information.? Patient was informed that recording will be read and reviewed by myself before inclusion in the medical chart. The patient is here for an x-ray follow-up of his left knee. He reports that his right knee is in good condition. He has not received any injections in his left knee previously. He is currently on dialysis and has a history of heart attack. He has neuropathy and developed blisters on his toes after wearing new shoes 3 to 4 weeks ago. He attributes this to his neuropathy, which prevented him from feeling the paper at the tip of the shoes. He expects these blisters to heal by tomorrow and is under the care of a bait painter. His hemoglobin A1c level is approximately 7, indicating controlled blood sugar levels. Personal History Red flag PMH: none BMI Counceling provided: Yes Pain Pain level (0-10): 7 Pain duration: ALL DAY Pain location: inside (medial) Pain quality: sharp Associated signs & symptoms: none Ambulatory data Ambulatory device: walker Walking distance (minutes): 5 Treatments Number of previous injections: 0 Number of Physical Therapy sessions: 0 Improvement with NSAIDS: no Review of Systems Review of Systems: All systems negative unless otherwise noted in HPI.
[2025-09-30 13:57] VITALS: BP 180/85; PULSE 92; RESP 19; TEMP 36.2; O2SAT 95; BMI 37.1
== END 2025-09-30 14:06 | disposition home or self-care (01) ==
LOC: HODSRG 13:42
PROVIDERS: PCP Family Medicine; Referring Provider Family Medicine; Supervising Provider Orthopaedic Surgery Adult Reconstructive Orthopaedic Surgery; Visit Provider Orthopaedic Surgery Adult Reconstructive Orthopaedic Surgery
DX: M17.12 Unilateral primary osteoarthritis, left knee (principal); I12.0 Hypertensive chronic kidney disease with stage 5 chronic kidney disease or end stage renal disease; E11.22 Type 2 diabetes mellitus with diabetic chronic kidney disease; N18.6 End stage renal disease; Z99.2 Dependence on renal dialysis; E11.40 Type 2 diabetes mellitus with diabetic neuropathy, unspecified; Z79.4 Long term (current) use of insulin
CPT/HCPCS: 20610; 99213; J1010; J2795; G0463